=== PATIENT | male | born 1975 | race Caucasian/White ===

== ENCOUNTER → 2016-09-08 | Outpatient (CLI) | payer BC ==
--- NOTE | 2016-09-08 16:30 | PCVCIMAG ---
APPROVED REPORT Study performed: 09/08/2016 14:46:25 EXAM: Comprehensive 2D, Doppler, and color-flow Echocardiogram Patient Location: Echo lab Status: routine Other Information Study Quality: Good Indications Dyspnea 2D Dimensions LVEF(%): 67.11 (>50%) IVSd: 11.42 (7-11mm)LVOT Diam: 22.12 (18-24mm) LVDd: 48.12 mm PWd: 10.96 (7-11mm)Ascending Ao: 32.75 (22-36mm) LVDs: 30.20 (25-40mm) Left Atrium: 36.95 (27-40mm) Aortic Root: 32.84 mm LV Single Plane 4CH: 55.94 % LV Single Plane 2CH: 62.82 %Thornton's LVEF: 59.38 % Biplane EF: 59.6 % Volumes Left Atrial Volume (Systole) Single Plane 4CH: 63.60 mLSingle Plane 2CH: 52.07 mL LA ESV Index: 26.00 mL/m2 Aortic Valve AoV Peak Ildefonso.: 1.12 m/s AO Peak Gr.: 5.23 mmHgLVOT Max P.44 mmHg LVOT Max V: 0.93 m/s JONATHAN Vmax: 3.18 cm2 Mitral Valve E/A Ratio: 1.3 MV Decel. Time: 143.14 ms MV E Max Ildefonso.: 0.67 m/s MV A Ildefonso.: 0.52 m/s IVRT: 72.66 ms TDI E/Lateral E': 5.58E/Medial E': 7.44 Medial E' Ildefonso.: 0.09 m/s Lateral E' Ildefonso.: 0.12 m/s Pulmonary Valve PV Peak Ildefonso.: 1.17 m/sPV Peak Gr.: 5.47 mmHg Pulmonary Vein P Vein S: 0.49 m/sP Vein A: 0.27 m/s P Vein D: 0.48 m/sP Vein A Dur.: 93.4 msec P Vein S/D Ratio: 1.02 Tricuspid Valve TR Peak Ildefonso.: 2.54 m/s TR Peak Gr.: 25.87 mmHg TV Vmax: 0.78 m/s Left Ventricle The left ventricle is normal size. There is normal LV segmental wall motion. Borderline concentric left ventricular hypertrophy. Left ventricular systolic function is normal. The left ventricular ejection fraction is within the normal range. LVEF is 60%. The left ventricular diastolic function is normal. Right Ventricle The right ventricle is normal size. The right ventricular systolic function is normal. Atria The left atrium size is normal. The right atrium size is normal. Aortic Valve The aortic valve is normal in structure. No aortic regurgitation is present. There is no aortic valvular stenosis. Mitral Valve The mitral valve is normal in structure. There is no mitral valve regurgitation noted. No evidence of mitral valve stenosis. Tricuspid Valve The tricuspid valve is normal in structure. There is mild tricuspid valve regurgitation noted with a PA pressure of 33mmHg. Pulmonic Valve The pulmonary valve is normal in structure. There is trace pulmonic valvular regurgitation. Great Vessels The aortic root is normal in size. The ascending aorta is normal in size. IVC is normal in size and collapses with >50% inspiration Pericardium There is no pericardial effusion. <Conclusion> The left ventricle is normal size. Left ventricular systolic function is normal. The right ventricle is normal size. The left atrium size is normal. The right atrium size is normal. The aortic valve is normal in structure. The mitral valve is normal in structure. There is mild tricuspid valve regurgitation noted with a PA pressure of 33mmHg.
== END | disposition home or self-care (01) ==
LOC: PCVCIMAG 15:01
PROVIDERS: ATTEND Internal Medicine Cardiovascular Disease
DX: I07.1 Rheumatic tricuspid insufficiency (principal); R06.00 Dyspnea, unspecified; I51.7 Cardiomegaly
CPT/HCPCS: 80061; 93005; 93306

== ENCOUNTER → 2016-10-06 | Outpatient (CLI) | payer BC ==
--- NOTE | 2016-10-06 16:27 | PCVCIMAG ---
APPROVED REPORT Exam: Stress Echocardiogram Indication: Hypertension Patient Location: Echo lab Stress Nurse: Yasmeen Cole RN Status: routine HR: 71 bpm Rhythm: NSR Procedure The patient underwent an Exercise Stress Test using the Max Protocol. Blood pressure, heart rate, and EKG were monitored. An Echocardiogram was performed by field service technician in four stages in quad fashion. At peak stress, four selected images were obtained and placed side by side with resting images for comparison. Stress Test Details Stress Test: Exercise stress testing was performed using a Max protocol. HR Resting HR: 71 bpmMax Heart Rate (APMHR): 181 bpm Max HR Achieved: 181 bpmTarget HR (85% APMHR): 153 bpm % of APMHR: 100 HR response to stress: Normal HR response to stress BP Resting BP: 118/88 mmHg Max BP: 180/82 mmHg ECG Resting ECG: Sinus Rhythm Stress ECG: Sinus Rhythm ST Change: Eqivocally ischemic, Non-ischemic Clinical Reason for Termination: Maximal effort Stress Symptoms: Dyspnea Exercise duration: 11 min 26 sec Highest Stage Achieved: Stage 3: 3.4 mph at 14% grade. Exercise capacity: 13.70 METs Overall Exercise Capacity for Age: Normal Pre-Stress Echo The resting Echocardiogram showed normal left ventricular contractility with an estimated Ejection Fraction of about >55%. Normal wall motion in all segments on baseline images. Post-Stress Echo The stress Echocardiogram showed normal left ventricular contractility with an estimated Ejection Fraction of about 60-65%. Normal augmentation of wall motion in all segments on post stress images. Conclusion Clinical Response: Non-ischemic Exercise Capacity: Superior Stress ECG Response: Non-ischemic Stress Echo Images: Non-ischemic Other Information Study Quality: Adequate
== END | disposition home or self-care (01) ==
LOC: PCVCIMAG 14:46
PROVIDERS: ATTEND Internal Medicine Cardiovascular Disease
DX: I10 Essential (primary) hypertension (principal); F31.9 Bipolar disorder, unspecified; Z72.0 Tobacco use
CPT/HCPCS: 93325; 93351; G0463